=== PATIENT | female | born 1985 | race Caucasian/White ===

== ENCOUNTER 2020-11-29 09:51 | Emergency (ER) | payer OTHER | END 2020-11-29 11:46 | disposition left against medical advice (07) | LOC: ER 09:52 | DX: Z20.822 Contact with and (suspected) exposure to COVID-19 (principal); Z53.21 Procedure and treatment not carried out due to patient leaving prior to being seen by health care provider ==

== ENCOUNTER → 2023-07-30 | Outpatient (CLI) | payer BC | END | disposition home or self-care (01) | LOC: MRI 15:01 | PROVIDERS: ATTEND Family Medicine Sports Medicine | DX: M47.26 Other spondylosis with radiculopathy, lumbar region (principal); S83.519A Sprain of anterior cruciate ligament of unspecified knee, initial encounter; M17.12 Unilateral primary osteoarthritis, left knee; M25.562 Pain in left knee; M48.061 Spinal stenosis, lumbar region without neurogenic claudication | CPT/HCPCS: 72148 ==